=== PATIENT | male | born 1980 ===

== ENCOUNTER 2017-04-24 21:03 | Emergency (ER) | payer SELFPAY ==
[2017-04-24 21:10] VITALS: BP 138/82; PULSE 63; RESP 16; TEMP 98; O2SAT 100
--- NOTE | 2017-04-24 22:22 | ED PDOC ---
HPI: CCC, URI, Sore Throat Chief Complaint (Nursing): ENT Problem Chief Complaint (Provider): Sinusitis History Per: Patient Additional Complaint(s): Pt is a 36 yo male, no PMH , presents to ED with complaint osf tactile fever, nasal congestion, sinus pressure x 3 days. Pt reports he saw his PMD today and was given an injection or unknown medication and given RX for Flonase. pt reports he still feels the same from this am. Past Medical History Reviewed: Nursing Documentation, Vital Signs Vital Signs: Last Vital Signs Temp 98 F 04/24/17 21:06 Pulse 63 04/24/17 21:06 Resp 16 04/24/17 21:06 BP 138/82 04/24/17 21:06 Pulse Ox 100 04/24/17 21:06 - Medical History PMH: No Chronic Diseases - Surgical History Surgical History: No Surg Hx - Family History Family History: States: No Known Family Hx - Living Arrangements Living Arrangements: With Family - Social History Current smoker - smoking cessation education provided: No Alcohol: None Drugs: Denies - Home Medications Home Medications: Ambulatory Orders Medication Instructions Recorded Methylprednisolone [Medrol Dose 4 mg PO DAILY #21 mg 04/24/17 Pack (21 tabs)] - Allergies Allergies/Adverse Reactions: Allergies Allergy/AdvReac Type Severity Reaction Status Date / Time No Known Allergies Allergy Verified 04/24/17 22:02 Review of Systems ROS Statement: Except As Marked, All Systems Reviewed And Found Negative Constitutional: Positive for: Fever ENT: Positive for: Nose Congestion Physical Exam - Reviewed Nursing Documentation Reviewed: Yes Vital Signs Reviewed: Yes - Physical Exam Appears: Positive for: Well, Non-toxic, No Acute Distress Head Exam: Positive for: ATRAUMATIC, NORMAL INSPECTION, NORMOCEPHALIC Skin: Positive for: Normal Color, Warm, DRY Eye Exam: Positive for: EOMI, Normal appearance, PERRL ENT: Positive for: Normal ENT Inspection, Other (Sinus tenderness) Neck: Positive for: Normal, Painless ROM Cardiovascular/Chest: Positive for: Regular Rate, Rhythm Respiratory: Positive for: CNT, Normal Breath Sounds Gastrointestinal/Abdominal: Positive for: Normal Exam, Bowel Sounds, Soft Back: Positive for: Normal Inspection Extremity: Positive for: Normal ROM Neurologic/Psych: Positive for: Alert, Oriented - ECG O2 Sat by Pulse Oximetry: 100 Medical Decision Making Medical Decision Making: Pt educated on sinusitis symptoms, as well as common duration. Supportive care measures discussed as well. Disposition - Clinical Impression Clinical Impression: Sinusitis - Patient ED Disposition Is Patient to be Admitted: No - Disposition Disposition: Routine/Home Disposition Time: 22:31 Condition: STABLE Prescriptions: Methylprednisolone [Medrol Dose Pack (21 tabs)] 4 mg PO DAILY #21 mg Instructions: Sinusitis (ED) - POA Present On Arrival: None
== END 2017-04-24 22:25 | disposition home or self-care (01) ==
LOC: H.ER 21:03 → EDBD 21:03 → H.ER 22:25
DX: J01.90 Acute sinusitis, unspecified (principal)